=== PATIENT | female | born 1930 | race Caucasian/White ===

== ENCOUNTER 2017-06-05 14:55 | Emergency (ER) | payer OTHER ==
[~2017-06-05] VITALS: Ht 162.6 cm; Wt 68.0 kg
[~2017-06-05 14:55] MED LIST: 8 HOUR PAIN RE650 M1 PO; ACETAMINOPHEN500 M7 PO; ALENDRONATE SOD70 MG PO; ARTIFICIAL TEAR1510 BOTH EYES; ASCORBIC ACID500 M3 PO; ATORVASTATIN CA20 MG PO; CALCIUM 600 +1 EAC2 PO; CELEXA10 MG PO; CELEXA40 MG PO; CYANOCOBALAM1000 MCG PO; EFFEXOR XR75 MG PO; FOSAMAX70 M1 PO; FOSAMAX70 MG PO; HYDROCODON-ACE1 EAC7 PO; HYDROCODONE-AP1 EAC5 PO; KEFLEX500 MG PO; LIPITOR20 MG PO; LORAZEPAM0.5 MG PO; NORCO 5/3251 TABLET PO; OMEPRAZOLE20 MG PO; PROTONIX40 MG PO; PROVENTIL,2.5 MG/3 M IH; QUETIAPINE FUMA25 MG PO; SENNA S TABLET1 EACH PO; SERTRALINE HCL50 MG PO; SIMVASTATIN40 M1 PO; TRAZODONE HCL50 MG PO; TYLENOL WITH C1 EACH PO; ULTRAM50 MG PO; VITAMIN B-12500 MCG PO; VITAMIN C500 M1 PO; VITAMIN D1000 UNIT PO; ZOLOFT25 MG PO
[2017-06-05 15:30] LABS: HEMATOCRIT 32.2 % (36.0-46.0); MCH 31.2 PG (29.0-34.0); MCHC 34.5 G/DL (30.0-36.0); MEAN PLAT.VOLUME 9.9 uM^3 (9.5-12.4); PLATELET COUNT 173 K/uL (156-360); RBC DIS.WIDTH-SD 43.4 % (39-53); RED BLOOD COUNT 3.56 M/uL (3.80-5.20); WHITE BLOOD COUNT 14.2 K/uL (4.1-10.2)
[2017-06-05 15:43] LABS: MCV 90.4 FL (83-99)
[2017-06-05 15:54] LABS: CHLORIDE 101 mEq/L (99-109); POTASSIUM 3.6 mEq/L (3.7-5.4); SODIUM 133 mEq/L (136-147)
[2017-06-05 15:56] LABS: GLUCOSE 143 mg/dL (70-99)
[2017-06-05 15:57] LABS: ANION GAP 12 MEQ/L (2-14)
[2017-06-05 16:00] LABS: GFR ESTIMATE (CALCULATED) > 59 mL/min/
[2017-06-05 16:01] LABS: UREA NITROGEN (BUN) 14 mg/dL (9-23)
[2017-06-05 16:08] LABS: TROP-I INTERPRETATION NEGATIVE; TROPONIN-I < 0.01 ng/mL (0.0-0.30)
[2017-06-05 17:24] LABS: ADD MIUA? YES; BILIRUBIN NEGATIVE; BLOOD SMALL; COLOR AMBER ((YELLOW)); GLUCOSE (STRIP) NEGATIVE; KETONES 5; LEUKOCYTES LARGE; NITRITE NEGATIVE; PROTEIN (STRIP) 100; SPECIFIC GRAVITY 1.019 (1.000-1.030); UROBILINOGEN 0.2 MG/DL (0.2-1.0)
[2017-06-05 17:35] LABS: BACTERIA 3+ /HPF; EPITHELIAL CELLS RARE /HPF; MUCUS TRACE /LPF; RED BLOOD CELLS 0-5 /HPF (0-5); UCUL ADDED? YES; WHITE BLOOD CELLS TNTC /HPF (0-5)
[2017-06-05] MEDS ORDERED: CIPRO500 MG PO (18:41)
[2017-06-05 22:06] VITALS: BP 118/59
== END 2017-06-05 22:07 ==
LOC: EME 14:55
PROVIDERS: Emergency Medicine
DX: N39.0 Urinary tract infection, site not specified (principal); E78.5 Hyperlipidemia, unspecified; K21.9 Gastro-esophageal reflux disease without esophagitis; M81.0 Age-related osteoporosis without current pathological fracture; F32.9 Major depressive disorder, single episode, unspecified; F41.9 Anxiety disorder, unspecified; Z90.12 Acquired absence of left breast and nipple; Z87.891 Personal history of nicotine dependence; Z91.81 History of falling; F10.10 Alcohol abuse, uncomplicated
CPT/HCPCS: 70450; 71020; 72170; 80048; 81003; 83605; 84484; 85027; 87077; 87086; 87186; 93005; 94640; 99281; 99285; J7030

== ENCOUNTER → 2017-06-22 | Outpatient (CLI) | payer OTHER ==
[~2017-06-22] MED LIST changes: +CIPRO500 MG PO
== END ==
LOC: RAD 10:34
DX: K43.9 Ventral hernia without obstruction or gangrene (principal); M25.752 Osteophyte, left hip; M25.751 Osteophyte, right hip; M25.851 Other specified joint disorders, right hip; M25.852 Other specified joint disorders, left hip; M47.816 Spondylosis without myelopathy or radiculopathy, lumbar region; G95.89 Other specified diseases of spinal cord; M47.898 Other spondylosis, sacral and sacrococcygeal region; I70.0 Atherosclerosis of aorta
CPT/HCPCS: 72192